=== PATIENT | male | born 1970 | race African-American/Black ===

== ENCOUNTER 2016-08-28 13:59 | Emergency (ER) | payer OTHER ==
[~2016-08-28] VITALS: Ht 208.3 cm; Wt 114.1 kg
[2016-08-28] MEDS ORDERED: PROAAER10 (14:30)
[2016-08-28] MEDS ORDERED: HYDR-3713 PO (14:30)
[2016-08-28] MEDS ORDERED: PATA0.2S (14:30)
[2016-08-28] MEDS ORDERED: EPIP0.3I2 (14:30)
[2016-08-28] MEDS ORDERED: HYDR25TA6 (14:30)
[2016-08-28] MEDS ORDERED: FLUT1SPR2 (14:30)
[2016-08-28] MEDS ORDERED: MONT10TA2 (14:30)
[2016-08-28] MEDS ORDERED: NEXI40CA (14:30)
[2016-08-28] MEDS ORDERED: DULE100A (14:30)
[2016-08-28] MEDS ORDERED: ALLE10TA2 (14:30)
[2016-08-28] MEDS ORDERED: KETOROLAC 30 MG/ML VIAL (J1885) IV ONE (15:45)
--- NOTE | 2016-08-28 16:20 | REP ---
Chest two views HISTORY: Chest pain Comparison: 06/26/2013 The lungs are clear. The heart is normal in size. The pulmonary vasculature is normal in appearance. The bony structure is intact. IMPRESSION: No acute disease. Signed by Clint Luna MD 08/28/2016 04:12 P
[2016-08-28 16:44] LABS: BASO # 0.1 K/mm3 (0.0-0.2); BASO % 2.4 % (0.0-1.0); EOS # 0.2 K/mm3 (0.0-0.50); EOS % 2.7 % (0.0-3.0); LARGE UNSTAINED CELL # 0.1 K/mm3 (0.0-0.4); LARGE UNSTAINED CELL % 2.3 % (0.0-4.0); LYMPH # 2.1 K/mm3 (1.5-4.5); LYMPH % 32.4 % (24.0-44.0); MEAN CORPUSCULAR HEMOGLOBIN 27.1 pg (27.0-33.0); MEAN CORPUSCULAR HGB CONC 34.6 g/dl (32.0-36.5); MEAN CORPUSCULAR VOLUME 78.1 fl (80.0-96.0); MONO # 0.4 K/mm3 (0.0-0.8); MONO % 6.4 % (0.0-5.0); NEUTROPHILS # 3.2 K/mm3 (1.8-7.7); NEUTROPHILS % 53.8 % (36.0-66.0); PLATELET COUNT, AUTOMATED 169 k/mm3 (150-450); RED CELL DISTRIBUTION WIDTH 13.6 % (11.5-14.5)
[2016-08-28 17:08] LABS: ERYTHROCYTE SEDIMENTATION RATE 7 mm/hr (0-15)
[2016-08-28 17:09] LABS: ANION GAP 9 MEQ/L (8-16); BLOOD UREA NITROGEN 13 MG/DL (7-18); CALCIUM LEVEL 8.8 MG/DL (8.5-10.1); CARBON DIOXIDE LEVEL 27 MEQ/L (21-32); CHLORIDE LEVEL 100 MEQ/L (98-107); CREATININE FOR GFR 0.99 MG/DL (0.70-1.30); GLOMERULAR FILTRATION RATE > 60.0 (>60); GLUCOSE, FASTING 82 MG/DL (70-105); POTASSIUM SERUM 3.8 MEQ/L (3.5-5.1); SODIUM LEVEL 136 MEQ/L (136-145)
[2016-08-28] MEDS ORDERED: PRED20TA PO ×2 (17:22→17:33)
[2016-08-28 17:35] VITALS: BP 132/70
--- NOTE | 2016-08-28 21:00 | ECGEPIP ---
Stationary ECG Study [facility] - ED Test Date: 2016-08-28 Pat Name: CHINO MEIER Department: Room: - Gender: M [employer]: ct : 1970 Requested By: ROYER Grover PA-C Order Number: [id number] Reading MD: Rachele Armenta Measurements Intervals Thompson Rate: 63 P: 37 WY: 181 QRS: 26 QRSD: 93 T: 23 QT: 407 QTc: 418 Interpretive Statements SINUS RHYTHM WITH SINUS ARRHYTHMIA NONSPECIFIC T-WAVE ABNORMALITY NO PRIOR FOR COMPARISON Electronically Signed On 08-28-2016 21:00:15 EDT by Rachele Armenta
== END 2016-08-28 17:35 | disposition home or self-care (01) ==
LOC: M ED 13:59
DX: R07.89 Other chest pain (principal); I10 Essential (primary) hypertension; J45.909 Unspecified asthma, uncomplicated; G47.30 Sleep apnea, unspecified
CPT/HCPCS: 71020; 80048; 82550; 82553; 85025; 85379; 85652; 86140; 93005; 96374; 99283; J1885

== ENCOUNTER → 2016-11-23 | Outpatient (CLI) | payer OTHER ==
[~2016-11-23] MED LIST: ALLE10TA2; DULE100A; E-Z-GAS II EFFERVESCENT PACKET (SODIUM BICARB./CITRIC ACID/SIMETHICONE) As Ordered ONE; E-Z-HD 98% w/w 340GM SUSP BTL As Ordered ONE; E-Z-PAQUE 96% w/w SUSP 176GM BTL As Ordered ONE; EPIP0.3I2; FLUT1SPR2; HYDR-3713 PO; HYDR25TA6; MONT10TA2; NEXI40CA; PATA0.2S; PRED20TA PO; PROAAER10
--- NOTE | 2016-11-23 17:10 | REP ---
Esophagram The procedure was performed under the direct supervision of Dr. Lazo. The images were reviewed with Dr. Lazo. A single view PA chest x-ray is submitted as a jalousie installer film. The superior mediastinal structures are midline. The heart size is within normal limits. The lungs are clear. Liquid barium and gas producing granules were given in the erect position as well as liquid barium in the prone oblique positions in order to perform a double contrast esophagram examination. The oral and pharyngeal stages of deglutition are unremarkable. Esophageal transport is prompt and efficient and there is no esophagitis, stricture, mucosal ring or hiatal hernia. The GE junction is patulous. There is mild gastroesophageal reflux demonstrated to below the level of the ale. Impression: Patulous GE junction. There is mild gastroesophageal reflux demonstrated to below the level of the ale. Otherwise, unremarkable double contrast esophageal examination. 1 minute and 18 seconds of fluoro time was utilized for this procedure. Reviewed by GRACIE Carbajal 11/23/2016 04:09 PSigned by Brendon Lazo MD 11/23/2016 05:01 P
== END ==
LOC: M RAD 07:42
PROVIDERS: ATTEND Family Medicine
DX: K21.9 Gastro-esophageal reflux disease without esophagitis (principal); K44.9 Diaphragmatic hernia without obstruction or gangrene

== ENCOUNTER → 2019-12-20 | Outpatient (REF) | payer OTHER ==
[~2019-12-20] MED LIST changes: -ALLE10TA2; -E-Z-GAS II EFFERVESCENT PACKET (SODIUM BICARB./CITRIC ACID/SIMETHICONE) As Ordered ONE; -E-Z-HD 98% w/w 340GM SUSP BTL As Ordered ONE; -E-Z-PAQUE 96% w/w SUSP 176GM BTL As Ordered ONE; +LORA-753; -MONT10TA2; +MONT10TA4; +OLOP2.5D3; -PATA0.2S
[2019-12-20 18:38] LABS: BLOOD UREA NITROGEN 11 MG/DL (7-18); CREATININE FOR GFR 1.07 MG/DL (0.70-1.30); GLOMERULAR FILTRATION RATE > 60.0 (>56)
== END ==
LOC: M LAB REF 17:20
PROVIDERS: ATTEND Physician Assistant
DX: R91.8 Other nonspecific abnormal finding of lung field (principal)

== ENCOUNTER → 2019-12-26 | Outpatient (CLI) | payer OTHER ==
[~2019-12-26] MED LIST changes: +ISOVUE-370 76% 100ML VIAL As Ordered ONE
--- NOTE | 2019-12-26 17:32 | REP ---
INDICATION: ABN FINDING OF LUNG. COMPARISON: Chest x-ray 08/28/2016 TECHNIQUE: Bolus 75 mL Isovue 370 scanning through chest with coronal and sagittal reconstructions. FINDINGS: Lung quijano are adequately inflated there is minimal dependent atelectatic change posteriorly in the lower lung zones but no effusion, pleural thickening, pleural based mass or calcified plaque. I see no infiltrate, pulmonary nodule or other acute lung finding no pneumothorax. Heart size not grossly enlarged. There is no pericardial thickening or effusion. The aorta is without aneurysm or dissection. I see no pathologic sized mediastinal or hilar adenopathy. Mildly prominent azygos vein noted. The main, right and left pulmonary arteries in the mediastinum are without filling defect or vessel cut off. No axillary or supraclavicular mass some fat replaced nodes are in both axilla, normal bone windows show thoracic and lower cervical spine vertebral bodies and posterior elements intact sternum, manubrium and visualized clavicles are intact. There is a multipart sternum with smooth margins, no fracture. Visualized ribs are all intact and the a portion of scapulae and humeral heads included are unremarkable. The upper abdomen shows diffuse fatty infiltration of the liver without hepatomegaly, splenomegaly, biliary dilatation or ascites. Gallbladder without calcified stone and the visualized pancreas, adrenal glands, upper poles of the kidneys and stomach unremarkable. No hiatal hernia visualized, bowel loops intact. IMPRESSION: 1. Minor dependent atelectatic changes in the posterior lung quijano without parenchymal lung findings, infiltrate nodule or mass. No pleural plaques, pleural based mass or effusion. 2. Diffuse fatty infiltration of the liver without hepatosplenomegaly, focal Paddock or splenic lesion, biliary dilatation or ascites. Gallbladder pancreas adrenal glands kidneys also unremarkable. 3. No hiatal hernia. Bones intact <Electronically signed by Mo Beck > 12/26/19 [id number]
== END ==
LOC: M RAD 15:13
PROVIDERS: ATTEND Physician Assistant
DX: R91.8 Other nonspecific abnormal finding of lung field (principal); J98.11 Atelectasis; K76.0 Fatty (change of) liver, not elsewhere classified
CPT/HCPCS: 71260; Q9967